=== PATIENT | male | born 2000 | race Caucasian/White ===

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

== ENCOUNTER 2024-06-30 15:46 | Emergency (ER) | payer OTHER ==
[~2024-06-30] VITALS: Ht 175.3 cm; Wt 81.7 kg
[2024-06-30 15:55] VITALS: BP 147/91
== END 2024-06-30 18:02 | disposition home or self-care (01) ==
LOC: ER 15:46
DX: M25.512 Pain in left shoulder (principal); M41.9 Scoliosis, unspecified; Z91.041 Radiographic dye allergy status; Z79.899 Other long term (current) drug therapy; Z59.89 Other problems related to housing and economic circumstances; W01.0XXA Fall on same level from slipping, tripping and stumbling without subsequent striking against object, initial encounter
CPT/HCPCS: 73030; 99283-25